=== PATIENT | male | born 1965 | race Caucasian/White ===

== ENCOUNTER 2016-07-25 07:51 | Emergency (ER) | payer OTHER ==
[~2016-07-25] VITALS: Ht 188 cm; Wt 109.1 kg
[2016-07-25] MEDS ORDERED: LORazepam 1MG TABLET ONE ×2 (08:57→11:16)
[2016-07-25] MEDS ORDERED: SODIUM CHLORIDE FLUSH 10ML SYR IVF ONE (09:00)
[2016-07-25] MEDS ORDERED: LORazepam 1MG TABLET PO ONE ×2 (09:00→11:30)
[2016-07-25] MEDS ORDERED: MAGNESIUM SULFATE 1 GM, THIAMINE 100 MG, FOLIC ACID 1 MG, MVI ADULT 10 ML in SODIUM CHL... IV ONE (09:00)
[2016-07-25 09:13] LABS: ASPARTATE AMINO TRANSFERASE 173 U/L (15-37); BLOOD UREA NITROGEN 7 mg/dL (7-18)
[2016-07-25] MEDS ORDERED: POTASSIUM CHLORIDE 20 MEQ TAB.ER.PRT PO ONE (10:30)
[2016-07-25] MEDS ORDERED: MAGNESIUM CARBONATE 54 MG/5 ML ORAL SOL PO ONE (10:30)
[2016-07-25] MEDS ORDERED: POTASSIUM CHLORIDE 20 MEQ TAB.ER.PRT ONE (11:16)
[2016-07-25 12:10] VITALS: BP 128/78
== END 2016-07-25 12:13 | disposition home or self-care (01) ==
LOC: ED 12:07
DX: F10.221 Alcohol dependence with intoxication delirium (principal); K85.20 Alcohol induced acute pancreatitis without necrosis or infection; D69.3 Immune thrombocytopenic purpura; R74.0 Nonspecific elevation of levels of transaminase and lactic acid dehydrogenase [LDH]; E87.6 Hypokalemia; E83.42 Hypomagnesemia; D62 Acute posthemorrhagic anemia; D50.9 Iron deficiency anemia, unspecified
CPT/HCPCS: 36415; 80053; 80307; 83690; 83735; 85025; 85610; 85730; 93005; 96365; 96366; J3411; J3475; J7030